=== PATIENT | female | born 1935 | race Caucasian/White ===

== ENCOUNTER → 2018-03-05 | Day surgery (SDC) | payer OTHER ==
[~2018-03-05] MED LIST: DOBUTamine/DEXTROSE 250 ML IV ONE
--- NOTE | 2018-03-18 17:07 | ECHO ---
[email or web address] [address] Main: [phone] Fax: Transthoracic Echocardiogram Name: MARY CORTEZ MR#: [id number] Study Date: 03/05/2018 Study Time: 11:22 AM Date of : 1935 Age: 82 year(s) Height: 167.6 cm (66 in.) Weight: 95.26 kg (210 lb.) BSA: 2.04 m2 Gender: Female Examination: DSE Indication: Dobutamine Stress Echo Image Quality: Contrast: Requested by: Mc Contreras BP: 144 mmHg/72 mmHg Heart Rate: Rhythm: Indication: Dobutamine Stress Echo Procedure Staff School Clerk: Grant Queen RDCS Reading Physician: Mc Contreras MD Requesting Provider: Conclusions: Stress echo consistent with severe aortic stenosis with significant increase in mean and peak gradient. Measurements: Chambers Valvular Assessment AV/MV Valvular Assessment TV/PV Normal Normal Normal Name Value Range Name Value Range Name Value Range LVOTd 1.9 cm 1.9 cm mm AV Vmax: 4.91 m/s (1 m/s-1.7 m/s) AV maxP mmHg ( - ) AV meanP mmHg ( - ) LVOT Vmax: 1.05 m/s (0.7 m/s-1.1 m/s) OK (Vmax): 0.6 cm2 ( - ) OK (VTI): 0.8 cm ( - ) Continued Measurements: Findings: Left Ventricle: Normal size left ventricle. Aortic Valve: Moderate aortic cusp calcification is present. Exam Comments: This is a doubatimine stress echo to evaluate the aortic valve gradients. The left ventricle is preserved with a normal ejection fraction. the baseline AV Vmax is 3.1 m/s with a mean PG of 23 mmHg and OK of .91 At 10 mc the Vmax is 3.6m/s with a mean PG of 28 mmHg. At 20 mc the AV Vmax was 4.1 m/s with a mean PG of 33 mmHg. At 30 mc the AV Vmax was 4.9 m/s with a mean PG of 50 mmHg and a follow up velocity of AV Vmax of 4.5 m/s and a mean PG of 44 mmHg. Patient: MARY CORTEZ Study Date: 03/05/2018 Page 1 of 2 11:22 AM Baseline EKG NSR with no ischemic changes with doubtamine infusion.. (No Signature Object) Patient: MARY CORTEZ Study Date: 03/05/2018 Page 2 of 2 11:22 AM [id number]
== END | disposition home or self-care (01) ==
LOC: FCATH 10:47 → EDSTATUS 11:30
PROVIDERS: ATTEND Internal Medicine Interventional Cardiology
DX: I35.0 Nonrheumatic aortic (valve) stenosis (principal); R53.83 Other fatigue
CPT/HCPCS: J1250

== ENCOUNTER → 2018-03-18 | Day surgery (SDC) | payer OTHER ==
[~2018-03-18] MED LIST changes: +ASPIRIN EC 325 MG TAB PO ONE; +ATROPINE SULFATE 1 MG/10 ML SYR IVP PRN; +CLOPIDOGREL BISULFATE 75 MG TAB ONE; +CLOPIDOGREL BISULFATE 75 MG TAB PO ONE; +DIAZEPAM 5 MG TAB ONE; +DIAZEPAM 5 MG TAB PO ONE; -DOBUTamine/DEXTROSE 250 ML IV ONE; +FAMOTIDINE 20 MG TAB ONE; +FAMOTIDINE 20 MG TAB PO ONE; +IOPAMIDOL (ISOVUE 370) 100 ML BTL IV ONE; +IOPAMIDOL (ISOVUE-370) 150 ML BTL IV ONE; +LIDOCAINE 1% 300 MG/30 ML SDV ONE; +MIDAZOLAM 2 MG/2 ML VIAL ONE; +NITROGLYCERIN 0.4 MG BTL SL PRN; +NS 1,000 ML IV ONE; +ONDANSETRON 4 MG/2 ML VIAL IVP PRN; +diphenhydrAMINE 25 MG CAP PO ONE; +fentaNYL 100 MCG/2 ML INJ ONE
--- NOTE | 2018-03-18 07:59 | PDPROPOC ---
Sedation Plan of Care Sedation Plan of Care: mental status noted, patient educated of risks, benefits , alternatives, patient can tolerate sedation ASA Classification: ASA 2 Planned drugs: fentanyl, midazolam Mallampati Score: Class 2 Mallampati Reference Image: Patient passed 3-3-2 rule?: Yes
--- NOTE | 2018-03-18 07:59 | PDHPUP ---
History & Physical Update H&P update statement: This history and physical update is based on an assessment of the patient which was completed after admission or registration (within 24 hours), but prior to the surgery/procedure. H&P update: H&P reviewed & patient examined, no change in patient's condition since H&P completed
[2018-03-18 08:08] LABS: PLATELET COUNT 215 10^3/uL (150-400)
[2018-03-18 08:16] LABS: INR 1.04 (0.83-1.16); PROTIME(PATIENT) 13.8 SEC (12.0-15.0)
--- NOTE | 2018-03-18 10:42 | CPIP ---
DATE OF PROCEDURE: 03/18/2018 INDICATION FOR PROCEDURE: Severe asymptomatic aortic stenosis pre-transcatheter aortic valve replace ment. PROCEDURE: 1. Left groin sheathogram. 2. 7-Faroese sheath left common femoral vein. 3. Bilateral selective coronary angiography. 4. Abdominal angiogram. 5. Right heart catheterization with [place]-Jona catheter. HISTORY: This is an 82-year-old female with history of severe symptomatic aortic stenosis. Patient has been seen by Dr. Cuevas and deemed to be a suitable candidate for TAVR. DESCRIPTION OF PROCEDURE: After informed consent was obtained, the patient was brought to [facility] where the left groin was prepped and draped in a sterile fashion. Using lidocaine, insertion of a 6-Faroese sheath in the left common femoral artery verified angiographically. A 7-Faroese sheath in left commo n vein. A [place]-Jona catheter was advanced. Wedge pressure was mean of 10, A-wave 13, V-wave 14. PA pressure systolic 53, diastolic 15, mean of 28. RV pressure systolic 54, diastolic 5, end of 12. RA pressur e mean of 6, A-wave of 12, V-wave of 7. Cardiac output was measured to be 5.2 by Terry with a cardiac index of 2.5. [place]-Jona catheter was then removed. A JL4 catheter was then advanced to the left coronary artery. Images of the left coronary artery revealed normal left main. Left circumflex artery gave off a serp iginous marginal 1 artery, normal marginal 2 artery, and terminating into an LPLS, which was appeared to be a codominant circulation. The LAD was a long vessel, which wrapped around the apex. The LAD gave a medium-sized diagonal artery in its midbody, which was healthy and free of disease. After these images were obtained, the JR4 catheter was removed. A JR4 catheter advanced to the right coronary artery. Images of the right coronary artery revealed normal os, prox, mid RCA, normal RPDA . This appeared to be a codominant circulation. The JR4 catheter was removed. Pigtail catheter is advanced to the descending aorta. Abdominal aorto gram obtained under digital subtraction imaging, which showed patent descending aorta, patent bilater al common, external, internal iliac arteries, patent bilateral common femoral artery. At this time, the pigtail catheter was removed. The 6-Faroese sheath and 7-Faroese sheath were removed with manual p ressure. Patient tolerated the procedure well with no complications. IMPRESSION: 1. Essentially normal coronary arteries. 2. Moderate pulmonary hypertension. PLAN: The patient will have her sheath discontinued and have bedrest for 3 hours time. The patient will be discharged home later today after her CT-A of the chest, abdomen, pelvis, and carotid ultraso und. Follow up in the office for evaluation for eventual TAVR. /[id number]/MODL
--- NOTE | 2018-03-18 16:40 | CPEKG ---
Test Reason : OPEN Blood Pressure : / mmHG Vent. Rate : 088 BPM Atrial Rate : 089 BPM P-R Int : 151 ms QRS Dur : 092 ms QT Int : 379 ms P-R-T Axes : 073 011 048 degrees QTc Int : 459 ms Sinus rhythm Confirmed by Nato Avila ([id number]) on 03/18/2018 4:40:04 PM Referred By: Confirmed By:Nato Avila
== END | disposition home or self-care (01) ==
LOC: FCATH 07:26
PROVIDERS: ATTEND Internal Medicine Cardiovascular Disease
DX: Z01.810 Encounter for preprocedural cardiovascular examination (principal); I35.0 Nonrheumatic aortic (valve) stenosis; I27.20 Pulmonary hypertension, unspecified; R93.1 Abnormal findings on diagnostic imaging of heart and coronary circulation; I65.22 Occlusion and stenosis of left carotid artery; I10 Essential (primary) hypertension; E03.9 Hypothyroidism, unspecified; Z79.82 Long term (current) use of aspirin; Z85.41 Personal history of malignant neoplasm of cervix uteri; Z96.653 Presence of artificial knee joint, bilateral; Z90.710 Acquired absence of both cervix and uterus; Z88.0 Allergy status to penicillin
CPT/HCPCS: J1644; J2250; J3010; Q9967

== ENCOUNTER 2018-03-25 06:19 | Inpatient (IN) | payer OTHER ==
[2018-03-25] MEDS ORDERED: NS 1,000 ML IV ONE (06:21)
--- NOTE | 2018-03-25 06:47 | PDPROPOC ---
Sedation Plan of Care Sedation Plan of Care: mental status noted, patient educated of risks, benefits , alternatives, patient can tolerate sedation ASA Classification: ASA 2 Planned drugs: other Mallampati Score: Class 3 Mallampati Reference Image: Patient passed 3-3-2 rule?: Yes
[2018-03-25] MEDS ORDERED: IOPAMIDOL (ISOVUE-370) 150 ML BTL IV ONE (06:52)
[2018-03-25] MEDS ORDERED: LIDOCAINE 1% 300 MG/30 ML SDV ONE ×2 (06:52→07:24)
--- NOTE | 2018-03-25 06:56 | PDANEPAE ---
ANE History of Present Illness here for TAVR ANE Past Medical History - Cardiovascular History Hx Hypertension: No Hx Arrhythmias: No Hx Chest Pain: No Hx Coronary Artery / Peripheral Vascular Disease: No Hx CHF / Valvular Disease: Yes Hx Palpitations: No - Pulmonary History Hx COPD: No Hx Asthma/Reactive Airway Disease: No Hx Sleep Apnea: No - Neurologic History Hx Cerebrovascular Accident: No Hx Seizures: No Hx Dementia: No - Endocrine History Hx Diabetes: No Hypothyroid: Yes Hyperthyroid: No - Renal History Hx Renal Disorders: No - Liver History Hx Hepatic Disorders: No ANE Review of Systems Review of systems is: negative Review of Systems: - Exercise capacity Exercise capacity: >=4 METS ANE Patient History - Allergies Allergies/Adverse Reactions: acetaminophen [From Percocet] Allergy (Verified 02/26/18 11:55) amoxicillin Allergy (Verified 03/25/18 06:48) Diarrhea oxycodone Allergy (Verified 02/26/18 11:55) - Home Medications Home medications: home medication list seen and reviewed Home Medications: ALPRAZolam [Xanax 0.5 MG (*)] 0.5 mg PO TID PRN 02/26/18 [Last Taken Unknown] Albuterol [Proventil Inhaler HFA (*)] 2 puffs IH Q6-8PRN PRN 02/26/18 [Last Taken 1 Day Ago ~03/24/18] C/E/Zn/Cu/OM3/DHA/EPA/LUT/ZEAX [Preservision Areds 2 Softgel] 2 each PO BID [Last Taken 1 Day Ago ~03/24/18] Ferrous Sulfate [Ferrous Sulf 325 MG (*)] 325 mg PO DAILY 02/26/18 [Last Taken 1 Day Ago ~03/24/18] Fluticasone Hfa 110 Mcg [Flovent 110 MCG Hfa MDI (*)] 2 puffs IH BID 02/26/18 [ Last Taken 1 Day Ago ~03/24/18] Folic Acid [Folic Acid 1 MG (*)] 1 mg PO DAILY 02/26/18 [Last Taken 1 Day Ago ~ 03/24/18] HYDROcodone/APAP 10/325 [Valders 10/325 (*)] 1 tab PO Q6-8PRN PRN 02/26/18 [Last Taken 1 Day Ago ~03/24/18] Herbals/Supplements -Info Only 1 ea PO DAILY 02/26/18 [Last Taken 1 Day Ago ~01/01] Hydrochlorothiazide [HCTZ (*)] 12.5 mg PO DAILY 02/26/18 [Last Taken 1 Day Ago ~ 03/24/18] Levothyroxine [Synthroid 50 mcg (*)] 50 mcg PO DAILY06 02/26/18 [Last Taken 1 Day Ago ~03/24/18] Methotrexate Sodium [Rheumatrex 2.5 mg (RX)] 10 mg PO TH 02/26/18 [Last Taken ] Metoprolol Succinate Xr [Toprol Xl 50 mg (*)] 50 mg PO DAILY18 02/26/18 [Last Taken 1 Day Ago ~03/24/18] Montelukast Sodium [Singulair 10 mg (*)] 10 mg PO DAILY 02/26/18 [Last Taken 1 Day Ago ~03/24/18] Pantoprazole Sodium [Protonix 40mg (*)] 40 mg PO DAILY 02/26/18 [Last Taken 1 Day Ago ~03/24/18] - NPO status NPO Status: no food or drink >8 hours - Smoking Hx Smoking Status: Never smoked ANE Labs/Vital Signs - Vital Signs Vital Signs: reviewed preoperatively; see RN documention for details Height: 167.64 cm Weight: 96.162 kg ANE Physical Exam - Airway Neck exam: FROM Mallampati Score: Class 2 Mouth exam: normal dental/mouth exam - Pulmonary Pulmonary: no respiratory distress - Cardiovascular Cardiovascular: regular rate and rhythym, systolic murmur - ASA Status ASA Status: III ANE Anesthesia Plan Anesthesia Plan: MAC Lines/Monitors: central line
[2018-03-25] MEDS ORDERED: ceFAZolin 2 GM/DEXTROSE 100 ML IV ONE (07:00)
[2018-03-25] MEDS ORDERED: fentaNYL 100 MCG/2 ML INJ ONE (07:12)
[2018-03-25] MEDS ORDERED: MIDAZOLAM 2 MG/2 ML VIAL ONE (07:13)
[2018-03-25] MEDS ORDERED: PROPOFOL/EMULSION 500 MG/50 ML BOTTLE IV ONE (07:14)
[2018-03-25] MEDS ORDERED: ePHEDrine SULFATE 25 MG/5 ML SYR ONE (07:17)
[2018-03-25] MEDS ORDERED: PHENYLEPHRINE HCL 100 MCG/ML SYR ONE (07:17)
[2018-03-25] MEDS ORDERED: DEXMEDETOMIDINE HCL 400 MCG in NS 100 ML IV ONE (07:30)
[2018-03-25] MEDS ORDERED: PROTAMINE SULFATE 50 MG/5 ML VIAL IVP ONE (08:42)
[2018-03-25] MEDS ORDERED: hydrALAZINE 20 MG/ML VIAL IVP PRN (08:51)
[2018-03-25] MEDS ORDERED: ATROPINE SULFATE 1 MG/10 ML SYR IVP PRN (08:51)
--- NOTE | 2018-03-25 13:18 | PDMN ---
Medical Necessity Medical necessity: 82 yo w/ MCG S320 Aortic Valve Replacement, Transcatheter ( TAVR), ANJALI only
[2018-03-25] MEDS ORDERED: ASPIRIN 81 MG CHEWABLE TAB PO SCH (13:30)
--- NOTE | 2018-03-25 13:37 | PDCONSULT ---
Ladle Patcher Note: [facility] Note Demographics Consult Type: Acute Stroke First Name: Juanjo Last Name: Sammi Date of : 1935 Age: 82 Gender: Female Time of initial page (): 03/25/2018 12:58 Time of return call (): 03/25/2018 12:58 Time Ready to Initiate Telemed Consult (): 03/25/2018 12:58 HPI Chief Complaint: dysarthria, facial droop Additional History (Free Text): This is a pleasant 82 yo W who we have been asked to see as part of a stroke alert. Patient is status post TAVR procedure this morning. She was doing well and was just cleared to get up from bed around noon. Shortly thereafter patient started complaining of acute onset of double vision. Her nurse also noticed that the left side of her face was drooping. Stroke alert was called. [facility]-- Past Surgical History: TAVR today Exam Vitals: vital signs reviewed Mental Status: awake, alert + oriented x 3, follows commands Language: no aphasia, mild dysarthria Cranial Nerves: extra ocular movements intact, normal facial sensation, Subjective double vision. Nystagmus with EOM, but no gross dysconjugate gaze. Patient said the left part of the screen appeared dark, but formal visual field testing did not show any deficits. She had L facial weakness. Motor: normal strength, normal bulk, no drift Sensory: normal sensation Cerebellar: normal cerebellar NIHSS Time ([place] ): 03/25/2018 12:53 LOC 1a: 0 = Alert; keenly responsive LOC 1b: 0 = Answers both questions correctly LOC Commands: 0 = Performs both tasks correctly Best Gaze: 0 = Normal Visual: 1 = Partial hemianopia Facial Palsy: 2 = Partial paralysis (total or near-total paralysis of lower face ) Motor Arm L: 0 = No drift; limb holds 90 (or 45) degrees for full 10 seconds Motor Arm R: 0 = No drift; limb holds 90 (or 45) degrees for full 10 seconds Motor Leg L: 0 = No drift; leg holds 30-degree position for full 5 seconds Motor Leg R: 0 = No drift; leg holds 30-degree position for full 5 seconds Limb Ataxia: 0 = Absent Sensory: 0 = Normal; no sensory loss Best Language: 0 = No aphasia; normal Dysarthria: 1 = Vhvn-[id number]-[id number] dysarthria; patient slurs at least some words Extinction + Inattention: 0 = No abnormality NIHSS: [address]: no bleed Assessment . Acute Ischemic Stroke Plan Lytic/Intervention: NOT IV or IA candidate, S/P TAVR so risk outweighs any benefit. tPA Exclusion (< 3hr window): Mild or improving symptoms Additional Recommendations: Patient just had contrast load for procedure, so hesitant to do CTA head and neck. If there is any worsening of neuro status, recommend CTA head and neck stat to look for LVO. Allow for permissive HTN, to what is permissible post TAVR. NPO until formal swallow eval. Start antiplatelet per cardiology recommendation. Discussed with / El. Disposition: continue admission Logistics Telemedicine: Interactive 2 way audio and visual telecommunication technology was utilized during this visit. Provider Location: [place]
[2018-03-25] MEDS: NS 1,000 ML IV SCH ×2 (13:40→20:44)
[2018-03-25 13:43] LABS: PLATELET COUNT 184 10^3/uL (150-400)
--- NOTE | 2018-03-25 16:10 | POSTANESTH ---
Post Anesthetic Evaluation Cardiovascular Status: Normal, Stable Respiratory Status: Normal, Stable Level of Consciousness/Mental Status: Can Participate in Eval Pain Control: Adequate, Prn Tx Ordered Nausea/Vomiting Control: Adequate, Prn Tx Ordered Complications Possibly Related to Anesthesia: None Noted
--- NOTE | 2018-03-25 16:15 | CPEKG ---
Test Reason : OPEN Blood Pressure : / mmHG Vent. Rate : 069 BPM Atrial Rate : 074 BPM P-R Int : 205 ms QRS Dur : 142 ms QT Int : 482 ms P-R-T Axes : 076 -66 090 degrees QTc Int : 517 ms Sinus arrhythmia Left bundle branch block Confirmed by Paresh Pope ([id number]) on 03/25/2018 4:14:51 PM Referred By: Confirmed By:Paresh Pope
--- NOTE | 2018-03-25 17:22 | CPIP ---
DATE OF PROCEDURE: 03/25/2018 INDICATION FOR PROCEDURE: Severe symptomatic aortic stenosis. CO-SURGEONS: Dr. Paul Cuevas, Dr. Anabela Baron, Dr. Eliot Burch. PROCEDURES: 1. Nonselective right groin sheathogram. 2. Nonselective left groin sheathogram. 3. Upsizing right groin to 16-Albanian sheath. 4. double Perclose placement. 5. left heart catheterization. 6. Aortic root angiography. 7. Placement of Medtronic CoreValve Evolut Pro 29 mm valve by the transfemoral route. HISTORY: Briefly, this is an 82-year-old female with history of severe symptomatic aortic stenosis. The patient had been worked up by Dr. Contreras, as an outpatient and had dobutamine echo, which show ed severe increasing gradient across the aortic valve with dobutamine infusion. The patient had norm al and normal coronary angiography. Given the patient's age, patient was conse nted for a transfemoral TAVR after [address] surgeons deemed her a suitable candidate for TAVR. DESCRIPTION OF PROCEDURE: After informed consent was obtained, the patient was brought to [facility] where for bilateral groins was prepped and draped in sterile fashion. The patient was sedated with MAC ane sthesia. A right internal jugular line was placed with a temporary pacemaker placed right into the R V. A 6-Albanian sheath placed in the right femoral artery, verified angiographically. A 6-Albanian nolan th in the left common femoral artery, verified angiographically. A 6-Albanian in the left common an 8-Albanian sheath. A 6-Albanian sheath in the right groin was upsized after double Perclose michelle cement, 16-Albanian sheath over a stiff Lunderquist wire. Patient is administered a total of 11,000 un its of heparin IV. Valve was crossed and AL1 catheter was exchanged wire, switched out fo r a pigtail catheter, switched out for a Confida wire. Placement of Medtronic CoreValve Evolut Pro 2 9 mm valve was then performed and this is then deployed successfully. After deployment, there is on echo, no perivalvular leak noted with excellent valvular function. Wire was pulled back. The sheath was then pulled out and closed with the double Percloses. The left groin was closed an 8-Albanian Ang io-Seal. Patient tolerated the procedure well with no complications. IMPRESSION: Successful placement of Medtronic CoreValve Evolut Pro 29 mm valve by the transfemoral r oute. PLAN: The patient will be admitted to PCU. Anticipate discharge within next 24 to 48 hours. /[id number]/MODL
--- NOTE | 2018-03-25 19:03 | GCON ---
NEUROLOGY CONSULT DATE OF CONSULTATION: 03/25/2018 REFERRING PHYSICIAN: Rojas Gallegos MD CHIEF COMPLAINT: Acute neurologic changes. HISTORY OF PRESENT ILLNESS: The patient is a very pleasant 82-year-old lady who had a TAVR procedure earlier today. Apparently, she was doing well and was cleared to get up from bed around noon when she suddenly complained of acute onset double vision, and nursing staff noticed left-sided facial droop. Stroke alert was called. She was seen by Dr. Hill of [facility]. It was noted that she had rapidly improving symptoms with an NIH stroke score of 4. Dr. Hill did not recommend IV or IA thrombolysis. Because she just received a large bolus of contrast with her TAVR procedure, Dr. Hill was hesitant to recommend a CTA of the head and neck. However, she did recommend to proceed with CTA of the head and neck stat if there is worsening neurologic status to look for a large vessel occlusion. She is on dual antiplatelet therapy and now doing well. Indeed, her 2 daughters feel that she has improved perhaps up to 80% since the initial deficit with fluids. REVIEW OF SYSTEMS: A 10-point review of systems was done only pertinent to the HPI. For past medical history, social history, family history, home medications, and allergies, see Dr. Gallegos's H and P. PHYSICAL EXAMINATION: VITAL SIGNS: Blood pressure is 115/61, respirations 14, heart rate 75. GENERAL: In no acute distress. Very pleasant. NEUROLOGIC: Higher mental functions: She is awake and alert, lucid. No aphasia. Cranial nerve exam: She has a left-sided facial weakness in an upper motor neuron distribution. On motor exam, she has left hemiparesis in the arm and leg. IMPRESSION/PLAN: 1. Status post transcatheter aortic valve replacement procedure. 2. Stroke. The patient's clinical history and neurologic exam are consistent with a post- procedure cerebral infarct in the right hemisphere. Discussed at length with the patient. Certainly, an embolic event is a known risk with these intravascular procedures. We reviewed the [facility] acute stroke alert note and their recommendations. We will proceed with this recommendation course. Specifically , the patient is on antiplatelet therapy, fluids, and can be on statin therapy as well going forward. If there is any acute neurologic change, a repeat inpatient stroke alert will be called, along with simultaneous STAT CTA of the head and neck to look for any large vessel occlusion. If she does have large vessel occlusion, then [facility] can make recommendations accordingly, including transfer for intravascular procedure. We had a long discussion regarding doing an MRI brain. The patient declined MRI brain testing now as it would likely not alter management. She also stated should would only want CTA head/neck if only absolutely necessary. She agreed to the above plan (with CTAs) if there is any change in her neurologic status. I recommend PT, OT, and speech therapy consults to help with inpatient and ongoing therapy, along with this physician. She will need a repeat swallow study from what I understand from nursing tomorrow. No further recommendations now. We will continue to follow the patient as needed. Please do not hesitate to call if there are any questions or changes in neurologic status with this very pleasant patient. Seventy total minutes floor time today reviewing imaging, records, [facility] documentation, and over 50% in direct counseling and coordination of care, along with speaking to Dr. Gallegos. /[id number]/MODL SHABBIR
[2018-03-26] MEDS: NS 1,000 ML IV SCH (04:43)
[2018-03-26 05:07] LABS: PLATELET COUNT 170 10^3/uL (150-400)
[2018-03-26 06:40] LABS: INR 1.14 (0.83-1.16); PROTIME(PATIENT) 14.8 SEC (12.0-15.0)
[2018-03-26] MEDS ORDERED: METOPROLOL TARTRATE 5 MG/5 ML INJ ONE (07:18)
[2018-03-26] MEDS: METOPROLOL TARTRATE 5 MG/5 ML INJ IVP SCH ×5 (07:47→23:27)
--- NOTE | 2018-03-26 09:52 | NEUROPROG ---
Assessment: 1. stroke 2. s/p TAVR The patient has improved further since yesterday. In her left lower extremity there has been a 80-90% improvement and power. Going forward, we will continue to follow the previously outlined plan: If she has any change in neurologic status we will call for a inpatient stroke alert with stat CTA head and neck and [facility] consultation. Otherwise, anti-platelet therapy and statin therapy if indicated going forward. PT OT and speech therapy have been consulted. No further recommendations now. We will sign off and follow up as needed. Please do not hesitate to call for any questions or changes in neurologic status with this patient. Subjective: Further improvement of left-sided weakness Objective: Vital Signs Temp Pulse Resp BP Pulse Ox 36.7 C 98 18 145/86 H 96 03/26/18 07:41 03/26/18 08:46 03/26/18 07:41 03/26/18 08:46 03/26/18 07:41 Laboratory Results 03/26/18 04:45 03/26/18 04:45 03/25/18 03/26/18 03/27/18 05:59 05:59 05:59 Intake Total 1672 Output Total 800 Balance 872 PT 14.8 SEC (12.0-15.0) 03/26/18 05:45 INR 1.14 (0.83-1.16) 03/26/18 05:45 Both upper extremities are 5/5 Left lower extremities 4/5 (hip extensors) right lower extremities 5/5 35 total minutes floor time; over 50% direct counseling and coordination of care. Allergies/Adverse Reactions: acetaminophen [From Percocet] Allergy (Verified 02/26/18 11:55) amoxicillin Allergy (Verified 03/25/18 06:48) Diarrhea oxycodone Allergy (Verified 03/25/18 09:35) Other-Enter Comments
--- NOTE | 2018-03-26 09:56 | PDCARPN ---
Cardiology Progress Note Chief Complaint: SOB Assessment/Plan: Assessment: s/p TAVR CVA HTN Plan: 03/26/18 09:52 Appreciate neurology input Swallow study today IV lopressor for BP/HR control check echo start plavix/ASA once cleared for swallow OOB with PT/rehab Subjective: tired Reviewed/Discussed With: multidisciplinary team Time Spent with Patient: greater than 25 minutes Time Spent with Patient: Greater than 25 minutes spent on this patients care, greater than 50% of time spent counseling, educating, and coordinating care regarding the above mentioned plan. Objective: Vital Signs (8 Hrs) Temp Pulse Resp BP Pulse Ox 03/26/18 08:46 98 145/86 H 03/26/18 07:47 84 127/50 H 03/26/18 07:41 36.7 C 86 18 131/55 H 96 03/26/18 04:00 37.7 C 106 H 16 139/65 H 95 Intake/Output (24 Hrs) 03/25/18 03/26/18 03/27/18 05:59 05:59 05:59 Intake Total 1672 Output Total 800 Balance 872 Intake: Oral (ml) 0 IV Infused (ml) 1672 Ns 1,000 ml @ 100 mls/hr 1672 IV CONT YESICA Rx#: [id number] Output: Urine (ml) 800 Bedside Commode 100 Catheter 450 Toilet 250 Other: Weight 96.162 kg Number of Voids Bedside Commode 1 Toilet 2 Post Void Residual Scan Volume (ml) Bedside Commode 385 Result Diagrams: 03/26/18 04:45 03/26/18 04:45 - Physical Exam Constitutional: no apparent distress Eyes: PERRL Ears, Nose, Mouth, Throat: moist mucous membranes Cardiovascular: regular rate and rhythm Peripheral Pulses: 1+: femoral (R), femoral (L) Respiratory: clear to auscultate bilat Gastrointestinal: normoactive bowel sounds Genitourinary: no suprapubic tenderness Skin: no rashes Musculoskeletal: no muscular tenderness Neurologic: AAOx3 Psychiatric: cooperative ICD10 Worksheet Patient Problems: Problems Problem Status Onset Aortic stenosis Acute Aortic stenosis Acute Aortic stenosis, severe Acute CVA (cerebral vascular accident) Acute SOB (shortness of breath) Acute - ICD10 Problem Qualifiers (1) Aortic stenosis Qualifiers: Cardiac valve disease etiology: nonrheumatic Qualified Code(s): I35.0 - Nonrheumatic aortic (valve) stenosis (2) Aortic stenosis, severe
--- NOTE | 2018-03-26 10:36 | ECHO ---
[email or web address] [address] [address] Main: [phone] Fax: Transthoracic Echocardiogram Name: MARY CORTEZ MR#: [id number] Study Date: 03/26/2018 Study Time: 08:30 AM Date of : 1935 Age: 82 year(s) Height: 167.6 cm (66 in.) Weight: 96.16 kg (212 lb.) BSA: 2.05 m2 Gender: Female Examination: Echo Indication: Post TAVR Image Quality: Contrast: Requested by: Rojas Gallegos BP: 145 mmHg/56 mmHg Heart Rate: Rhythm: Tachycardia Indication: Post TAVR Procedure Staff Multiple Needle Stitcher: Grant Queen RDCS Reading Physician: Mc Contreras MD Requesting Provider: Conclusions: No pericardial effusion. Ejection fraction is normal at 60%. There are no new regional wall motion abnormalities. There is a transcutaneous aortic valve replacement. There is no significant aortic insufficiency. Measurements: Chambers Valvular Assessment AV/MV Valvular Assessment TV/PV Normal Normal Normal Name Value Range Name Value Range Name Value Range IVSd (2D): 0.8 cm (0.6 cm-1.1 AV Vmax: 2.00 m/s (1 m/s-1.7 TR Vmax: 2.77 mm/s ( - ) cm) m/s) TR PGmax: 31 mmHg ( - ) LVDd (2D): 4.4 cm (3.9 cm-5.3 AV maxP mmHg ( - ) syst. PAP: 36 mmHg ( - ) cm) AV meanP mmHg ( - ) PV Vmax: 1.19 m/s (0.6 m/s-0.9 LVDs (2D): 3.0 cm (2.1 cm-4 LVOT Vmax: 1.31 m/s (0.7 m/s-1.1 m/s) cm) m/s) PV PGmax: 6 mmHg ( - ) LVPWd (2D): 0.8 cm ( - ) OK (Vmax): 2.3 cm2 ( - ) LVOTd 2.1 cm 2.1 cm mm OK (VTI): 2.5 cm ( - ) LVEF (2D): 60 (>=54 %) MV E Vmax: 1.39 m/s ( - ) Continued Measurements: Chambers Valvular Assessment TV/PV Name Value Name Value LADs Lon.6 cm CVP (est.): 5 mmHg LA Area: 19.3 cm2 LA Volume: 66 ml LA Volume Index: 32.2 ml/m2 Findings: Left Ventricle: Patient: MARY CORTEZ Study Date: 03/26/2018 Page 1 of 2 08:30 AM Normal size left ventricle. No LV hypertrophy. Normal global systolic LV function. EF is 60 %. No regional wall motion abnormality. Diastolic dysfunction is present. . Right Ventricle: Normal size right ventricle. Normal RV function. Left Atrium: The left atrium is normal in size. Right Atrium: The right atrium is normal in size. Mitral Valve: The mitral valve is normal in appearance. Mild mitral valve regurgitation is present. Aortic Valve: There is a Corevalve in the aortic position. There is no post AI or compromise of the Mitral Valve. There is preserved LV function. No evidence of a pericardial effusion. . Tricuspid Valve: The tricuspid valve appears normal. Pulmonic Valve: The pulmonic valve is normal in appearance and function. Aorta: The aorta is normal. Pericardium: No pericardial effusion. (No Signature Object) Patient: MARY CORTEZ Study Date: 03/26/2018 Page 2 of 2 08:30 AM [id number]
[2018-03-26] MEDS ORDERED: METOPROLOL TARTRATE 5 MG/5 ML INJ IVP SCH (12:00)
[2018-03-26] MEDS ORDERED: D5W 1/2 NS 1,000 ML IV SCH (16:00)
--- NOTE | 2018-03-26 20:28 | ECHO ---
[email or web address] [address] [address] Main: [phone] Fax: Transthoracic Echocardiogram Name: MARY CORTEZ MR#: [id number] Study Date: 03/25/2018 Study Time: 07:31 AM Date of : 1935 Age: 82 year(s) Height: 167.6 cm (66 in.) Weight: 95.26 kg (210 lb.) BSA: 2.04 m2 Gender: Female Examination: Limited Echo Indication: TAVR Image Quality: Contrast: Requested by: Rojas Gallegos BP: 140 mmHg/72 mmHg Heart Rate: Rhythm: Indication: TAVR Procedure Staff Shirt Turner: Grant Queen RDCS Reading Physician: Anabela Baron MD Requesting Provider: Rojas Gallegos Conclusions: Normal global systolic LV function. Successful implatation of corevalve in the aortic valve position. There is no evidence of any significant aortic insufficiency. There is no compromise of the mitral valve. Preserved LV systolic function with no evidence of a pericardial effusion. The TAVR valve has a Vmax of 1.4m/s with a Mean PG of 4 mmHg.. Measurements: Chambers Valvular Assessment AV/MV Valvular Assessment TV/PV Normal Normal Normal Name Value Range Name Value Range Name Value Range LVOTd 2.0 cm 2.0 cm mm AV Vmax: 1.45 m/s (1 m/s-1.7 m/s) AV maxP mmHg ( - ) AV meanP mmHg ( - ) LVOT Vmax: 1.04 m/s (0.7 m/s-1.1 m/s) OK (Vmax): 2.3 cm2 ( - ) OK (VTI): 0.9 cm ( - ) Continued Measurements: Findings: Left Ventricle: Normal global systolic LV function. Exam Comments: Successful implatation of corevalve in the aortic valve position. There is no evidence of any significant aortic insufficiency. There is no compromise of the mitral valve. Preserved LV systolic function with no evidence of a pericardial effusion. The TAVR valve has a Vmax of 1.4m/s with a Patient: MARY CORTEZ Study Date: 03/25/2018 Page 1 of 2 07:31 AM Mean PG of 4 mmHg.. (No Signature Object) Patient: MARY CORTEZ Study Date: 03/25/2018 Page 2 of 2 07:31 AM [id number]
--- NOTE | 2018-03-26 21:26 | ASMTCMCOM ---
CM Note CM Note Notes: 82yo female admitted for Aortic stenosis. She has a Hx of Cellulitis of L LE, HTN, Hypothyroid, OA, Cervical neoplasm. Patient to have a TAVR procedure. Her daughter is her MPOA. Therapies to eval. May not have discharge needs. Date Signed: 03/26/2018 09:50 AM Electronically Signed By:Sandra Riley LCSW
--- NOTE | 2018-03-26 22:17 | GCON ---
CRITICAL-CARE CONSULTATION DATE OF CONSULTATION: 03/26/2018 HISTORY OF PRESENT ILLNESS: This patient is an 82-year-old female with known moderate aortic stenosi s who complained of ongoing issues of fatigue and exertional dyspnea, so underwent a dobutamine stres s echo. This showed a significant increase in her aortic valve gradient and she was subsequently rec ommended for a transcutaneous aortic valve replacement. She subsequently met with both olman Young s well as Dr. Gil in seeking a second opinion about this and decided to proceed. The procedure occ urred yesterday and the procedure, itself, was without complications; however, shortly afterwards, th e patient experienced double vision, as well as a left facial droop and left hemiparesis. A stroke a lert was called, Telemedicine was involved, but because of the recent procedure, tPA was contraindica santino. She was subsequently followed by Neurology as well. She had a substantial improvement in sympt oms as much as 80% in the few hours after the procedure and continues to show improvement today. She denies any previous stroke history and had a carotid ultrasound, as well as CT angiograms and left a nd right heart catheterization prior to, but otherwise had no other risk factors. REVIEW OF SYSTEMS: Otherwise negative. PAST MEDICAL HISTORY: Includes: 1. Remote cervical cancer. 2. Hypertension. 3. Lower extremity cellulitis. 4. Hypothyroid. 5. Osteoarthritis. 6. Chronic sinus disease. 7. Moderate aortic stenosis and mild pulmonary hypertension on right heart catheterization with a me an pressure of 28. PAST SURGICAL HISTORY: Includes ankle surgery, hysterectomy, bilateral total knee arthroplasties. SOCIAL HISTORY: She has remote history of smoking tobacco, but otherwise lives independently. FAMILY HISTORY: Noncontributory her. MEDICATIONS: At this time, include aspirin, which she got yesterday, not today, clonidine, hydralazi ne, metoprolol, morphine, normal saline. EXAM: VITAL SIGNS: She is afebrile. Her blood pressure is 141/84, heart rate of 80, oxygen saturat ion 100% on 2 L with a rate of 14. GENERAL: She is a very pleasant woman who was in no apparent dis tress and able to speak in full sentences without using accessory muscles for breathing. Alert and o riented x3. HEENT: She had a slight facial droop on the left, which was difficult to see without a smile. Otherwise, pupils are equally round and reactive to light. Nonicteric and noninjected. Muco us membranes are moist without erythema or exudate. NECK: Supple without adenopathy or jugular vein distention. LUNGS: Breath sounds were clear to auscultation bilaterally without wheezes rubs or ra les. HEART: Regular rate and rhythm. ABDOMEN: Soft, nontender, nondistended without hepatosplenom egaly. EXTREMITIES: No clubbing, cyanosis, or edema. NEUROLOGIC: She had 5/5 strength throughout and other than the left lower extremity, which might have been slightly weaker. OBJECTIVE DATA: Includes a head CT which showed no significant pathology. Her CBC today is normal a s is her basic metabolic panel. INR is 1.14. ASSESSMENT/PLAN: 1. Aortic stenosis, status post transcatheter aortic valve replacement, which appears to be quite villa ccessful. 2. Stroke, presumably related to the procedure since embolic phenomenon are a risk factor involved. She appears to be progressing quite well. I had a 30 minute discussion with the patient, as well as her 2 daughters in detail today talking about their stroke and what it means, as well as the transca theter aortic valve replacement. My expectation I told them was that she should return to her pre-ho spital level of functioning and probably better since the valve surgery. I cannot predict exactly ho w she will recover from her stroke, but she is making great progress already and her ultimate disposi tion will depend on her level of functioning at the time of discharge. /[id number]/MODL
[2018-03-27] MEDS: METOPROLOL TARTRATE 5 MG/5 ML INJ IVP SCH (06:00)
[2018-03-27 06:32] LABS: PLATELET COUNT 150 10^3/uL (150-400)
--- NOTE | 2018-03-27 06:40 | PDCARPN ---
Cardiology Progress Note Chief Complaint: SOB Assessment/Plan: Assessment: s/p TAVR CVA HTN Plan: 03/26/18 09:52 Appreciate neurology input Swallow study today IV lopressor for BP/HR control check echo start plavix/ASA once cleared for swallow OOB with PT/rehab 03/27/18 06:38 doing better Improved neuro status OOB Speech eval/swallow test May need feeding tube today if swallowing not improved Subjective: feeling better Reviewed/Discussed With: multidisciplinary team Time Spent with Patient: greater than 25 minutes Time Spent with Patient: Greater than 25 minutes spent on this patients care, greater than 50% of time spent counseling, educating, and coordinating care regarding the above mentioned plan. Objective: Vital Signs (8 Hrs) Temp Pulse Resp BP Pulse Ox 03/27/18 06:00 82 134/54 H 03/27/18 04:00 79 22 H 147/60 H 93 03/26/18 23:22 37.3 C 101 H 20 144/72 H 96 Intake/Output (24 Hrs) 03/26/18 03/27/18 03/28/18 05:59 05:59 05:59 Intake Total 1672 1560 Output Total 800 940 Balance 872 620 Intake: Oral (ml) 0 IV Intake (ml) 990 IV Infused (ml) 1672 570 D5w 1/2 Ns 1,000 ml @ 50 570 mls/hr IV CONT YESICA Rx#: [id number] Ns 1,000 ml @ 100 mls/hr 1672 IV CONT YESICA Rx#: [id number] Output: Urine (ml) 800 940 Bedside Commode 100 Catheter 450 740 Toilet 250 200 Other: Weight 96.162 kg Number of Voids Bedside Commode 1 Catheter 4 Toilet 2 1 Post Void Residual Scan Volume (ml) Bedside Commode 385 Result Diagrams: 03/27/18 06:00 03/26/18 04:45 - Physical Exam Constitutional: no apparent distress Eyes: PERRL Ears, Nose, Mouth, Throat: moist mucous membranes Cardiovascular: regular rate and rhythm Peripheral Pulses: 1+: femoral (R), femoral (L) Respiratory: clear to auscultate bilat Gastrointestinal: normoactive bowel sounds Genitourinary: no suprapubic tenderness Skin: no rashes Musculoskeletal: no muscular tenderness Neurologic: AAOx3 Psychiatric: cooperative ICD10 Worksheet Patient Problems: Problems Problem Status Onset Aortic stenosis Acute Aortic stenosis Acute Aortic stenosis, severe Acute CVA (cerebral vascular accident) Acute SOB (shortness of breath) Acute - ICD10 Problem Qualifiers (1) Aortic stenosis Qualifiers: Cardiac valve disease etiology: nonrheumatic Qualified Code(s): I35.0 - Nonrheumatic aortic (valve) stenosis (2) Aortic stenosis, severe
[2018-03-27 06:42] LABS: INR 1.19 (0.83-1.16); PROTIME(PATIENT) 15.3 SEC (12.0-15.0)
[2018-03-27] MEDS: KETOROLAC 15 MG/1 ML SDV IVP PRN ×2 (08:09→21:06)
[2018-03-27] MEDS ORDERED: HYDROCODONE/APAP 10/325 TAB PO PRN (10:28)
[2018-03-27] MEDS: CLOPIDOGREL BISULFATE 75 MG TAB PO SCH (11:20)
[2018-03-27] MEDS: ASPIRIN 81 MG CHEWABLE TAB PO SCH (11:20)
--- NOTE | 2018-03-27 14:33 | ASMTCMCOM ---
CM Note CM Note Notes: Speech, PT and OT are all recommending home health for the patient. Spoke with Juanjo and she agrees with the recommendations. A referral was sent to [facility] and they can accept the patient. Transfer of care summary will need to include home health orders. Patient most likely to discharge tomorrow if she continues to do well post op. CM will follow. Date Signed: 03/27/2018 02:33 PM Electronically Signed By:Quin Romo LCSW
--- NOTE | 2018-03-27 15:49 | PDINTPN ---
Methods Examiner Progress Note Assessment/Plan: 82 F admitted for TAVR for which was complicated by acute CVA manifested as double vision, left facial droop and LUE/LLE weakness. A stroke alert was called at the onset of symptoms, but she was not a TPA candidate. However, her symptoms rapidly improved without specific intervention, though full protocol was followed. * s/p TAVR- post procedure echo looks good and anticipate improved chronic fatigue and performance status * CVA post procedure with rapid recovery- started on asa and plavix * HTN- well controlled. * * anticipate dc home in am Subjective: continues to improve Objective: Vital Signs Temp Pulse Resp BP Pulse Ox 36.7 C 74 16 138/61 H 96 03/27/18 12:00 03/27/18 12:00 03/27/18 12:00 03/27/18 12:00 03/27/18 12:00 Laboratory Results 03/27/18 06:00 03/26/18 04:45 03/26/18 03/27/18 03/28/18 05:59 05:59 05:59 Intake Total 1672 1560 Output Total 800 940 Balance 872 620 PT 15.3 SEC (12.0-15.0) H 03/27/18 06:00 INR 1.19 (0.83-1.16) H 03/27/18 06:00 Physical Exam - Physical Exam General Appearance: WD/WN, alert, no apparent distress EENT: PERRL/EOMI, No scleral icterus (R), No scleral icterus (L) Neck: full range of motion, supple, No lymphadenopathy (R), No lymphadenopathy ( L) Respiratory: lungs clear, normal breath sounds, No respiratory distress, No accessory muscle use Cardiac/Chest: regular rate, rhythm, No edema Abdomen: non-tender, soft, No distended Skin: normal color, warm/dry, No cyanosis Lymphatic: no adenopathy Extremities: No pedal edema Neuro/Psych: no motor/sensory deficits, alert, normal mood/affect, oriented x 3 , abnormal cerebellar tests, No abnormal machine heel sprayer II-XII ICD10 Worksheet Patient Problems: Problems Problem Status Onset Aortic stenosis Acute Aortic stenosis Acute Aortic stenosis, severe Acute CVA (cerebral vascular accident) Acute SOB (shortness of breath) Acute
[2018-03-27] MEDS ORDERED: METOPROLOL SUCCINATE XR 50 MG TAB PO SCH (18:00)
[2018-03-27] MEDS: FLUTICASONE HFA 110 MCG MDI IH SCH (20:23)
[2018-03-27] MEDS: PRESERVISION AREDS2 FORMULA EYE VIT 1 EACH PO SCH (21:06)
[2018-03-28] MEDS ORDERED: LEVOTHYROXINE 50 MCG TAB PO SCH (06:00)
--- NOTE | 2018-03-28 07:37 | PDCARPN ---
Cardiology Progress Note Chief Complaint: SOB Assessment/Plan: Assessment: s/p TAVR CVA HTN Plan: 03/26/18 09:52 Appreciate neurology input Swallow study today IV lopressor for BP/HR control check echo start plavix/ASA once cleared for swallow OOB with PT/rehab 03/27/18 06:38 doing better Improved neuro status OOB Speech eval/swallow test May need feeding tube today if swallowing not improved 03/28/18 07:36 doing very well swallowing OOB d/c home today f/u next week Subjective: doing well Reviewed/Discussed With: multidisciplinary team Time Spent with Patient: greater than 25 minutes Time Spent with Patient: Greater than 25 minutes spent on this patients care, greater than 50% of time spent counseling, educating, and coordinating care regarding the above mentioned plan. Objective: Vital Signs (8 Hrs) Temp Pulse Resp BP Pulse Ox 03/28/18 03:57 36.8 C 95 20 147/65 H 94 03/28/18 00:00 36.5 C 81 21 H 159/73 H 92 Intake/Output (24 Hrs) 03/27/18 03/28/18 03/29/18 05:59 05:59 05:59 Intake Total 1560 1050 Output Total 940 Balance 620 1050 Intake: Oral (ml) 1050 IV Intake (ml) 990 IV Infused (ml) 570 D5w 1/2 Ns 1,000 ml @ 50 570 mls/hr IV CONT YESICA Rx#: [id number] Output: Urine (ml) 940 Catheter 740 Toilet 200 Other: Intake Quantity Yes Sufficient Number of Voids Catheter 4 Toilet 1 1 Number of Stools Toilet 1 Post Void Residual Scan Volume (ml) Bedside Commode 385 Result Diagrams: 03/27/18 06:00 03/26/18 04:45 - Physical Exam Constitutional: healthy appearing Eyes: PERRL Ears, Nose, Mouth, Throat: moist mucous membranes Cardiovascular: regular rate and rhythm Peripheral Pulses: 1+: femoral (R), femoral (L) Respiratory: clear to auscultate bilat Gastrointestinal: normoactive bowel sounds Genitourinary: no suprapubic tenderness Skin: no rashes Musculoskeletal: no muscular tenderness Neurologic: AAOx3 Psychiatric: cooperative, interactive ICD10 Worksheet Patient Problems: Problems Problem Status Onset Aortic stenosis Acute Aortic stenosis Acute Aortic stenosis, severe Acute CVA (cerebral vascular accident) Acute SOB (shortness of breath) Acute - ICD10 Problem Qualifiers (1) Aortic stenosis Qualifiers: Cardiac valve disease etiology: nonrheumatic Qualified Code(s): I35.0 - Nonrheumatic aortic (valve) stenosis (2) Aortic stenosis, severe
[2018-03-28 07:41] VITALS: BP 159/64
--- NOTE | 2018-03-28 08:15 | GDS ---
DISCHARGE DIAGNOSES: Transcatheter aortic valve replacement/cerebrovascular accident. HOSPITAL COURSE: This is an 82-year-old female who had a history of severe symptomatic aortic stenos is. The patient was seen by 2 CT surgeons who deemed the patient to be a suitable candidate for sparks sfemoral TAVR. The patient underwent successful transfemoral TAVR with Medtronic CoreValve Evolut Pr o 29 mm valve. Approximately 5 hours after her procedure after she had been ambulating and was neuro logically intact, the patient had a sudden onset of left facial droop, double vision, lightheadedness , and left upper extremity weakness. Stroke alert was called. The patient had a stat CT scan, which showed no intracranial bleed. Of not e, the patient's symptoms rapidly improved over a few hours; however, the main sequela of this event was difficulty swallowing. The patient's swallowing recovered over the next 36 hours, and the patien t has been eating, taking p.o. intake with food and pills with no issues. She has been having no pro blems urination and bowel movements. She has no focal deficits noted at this time and been ambulatin g the halls without problems. Her post-procedure echocardiogram showed normal EF with normally funct ioning valve. She will be discharged home today with her home medications, including baby aspirin and Plavix, as we ll as an increased dose of her Toprol-XL to 100 mg p.o. daily. As of this time, the patient is compl etely back to her baseline with only a very slight amount of blurred vision; however, this has been r apidly improving as well over the last 24 hours. There are no other cognitive neurologic deficits. /[id number]/MODL
[2018-03-28] MEDS: PRESERVISION AREDS2 FORMULA EYE VIT 1 EACH PO SCH (08:20)
[2018-03-28] MEDS: ASPIRIN 81 MG CHEWABLE TAB PO SCH (08:20)
[2018-03-28] MEDS: CLOPIDOGREL BISULFATE 75 MG TAB PO SCH (08:20)
[2018-03-28] MEDS: FLUTICASONE HFA 110 MCG MDI IH SCH (08:42)
[2018-03-28] MEDS ORDERED: MONTELUKAST SODIUM 10 MG TAB PO SCH (09:00)
[2018-03-28] MEDS ORDERED: METOPROLOL SUCCINATE XR 100 MG TAB PO SCH (09:00)
[2018-03-28] MEDS ORDERED: FERROUS SULFATE 325 MG TAB PO SCH (09:00)
[2018-03-28] MEDS ORDERED: Herbals/Supplements -Info Only PO SCH (09:00)
[2018-03-28] MEDS ORDERED: PANTOPRAZOLE SODIUM 40 MG TAB PO SCH (09:00)
[2018-03-28] MEDS ORDERED: HYDROCHLOROTHIAZIDE 25 MG TAB PO SCH (09:00)
[2018-03-28] MEDS ORDERED: FOLIC ACID 1 MG TAB PO SCH (09:00)
[2018-03-28] MEDS ORDERED: METHOTREXATE 2.5 MG TAB PO SCH (10:28)
[2018-03-28] MEDS ORDERED: ATORVASTATIN CALCIUM 20 MG TAB PO SCH (11:00)
--- NOTE | 2018-03-28 11:41 | PDIAF ---
- Diagnosis Code Status: Full Code - Medication Management Discharge Medications: electronically signed and located in the Home Medication List. - Orders Services needed: Home Care, Physical Therapy, Occupational Therapy, Speech Language Pathologist Home Care Face to Face: I certify that this patient was under my care and that I had the required [id number] encounter meeting the encounter requirements on the discharge day. My findings support the fact that the patient is homebound as defined in Home Care Face to Face Continued: CMS Chapter 7 Medicare Benefits Manual 30.1.1 , The condition of the patient is such that there exists a normal inability to leave home and consequently, leaving home would require a considerable and taxing effort. Diet Recommendation: cardiac -low fat low salt Diet Texture: Dysphagia 2 - Mechanically Altered - Chopped, Ground, Thin Liquids , Meds Whole w/Liquids Additional Instructions: Per TAVR discharge Instruction sheet. Will need to have lab drawn in 8 weeks to check Lipids and LFT's If questions, call Sweta or Dr El Garcia's RN's at [facility]. - Follow Up Care Current Providers and Referrals: Yoanna Mcpherson MD [Primary Care Provider] - Rojas Gallegos MD [Medical Doctor] - follow up in 1 week (She has appointments made. )
--- NOTE | 2018-03-28 11:54 | ASMTDCNOTE ---
Case Management Discharge Discharge Order Complete? Answers: Yes Patient to Obtain Answers: Independently Medications Transportation Arranged Answers: Family/Friends Faxed Final Orders Answers: Yes Notes: HC Agency/Facility Transfer Answers: Yes Notes: HC Report Printed & Faxed to Receiving Agency Family Notified Answers: Yes Notes: Jammie sanabria Discharge Comments Notes: Patient is discharging home today with [facility] for speech, physical therapy, and occupational therapy. Discharge summaries were Allscripted to [facility]. Daughter Jammie will drive patient back home. No further needs. Date Signed: 03/28/2018 11:53 AM Electronically Signed By:Quin Romo LCSW
--- NOTE | 2018-03-28 12:01 | ASDISCHSUM ---
Discharge Information Plan Status:Home with Home Health Medically Cleared to Leave:03/27/2018 Discharge Date:03/28/2018 11:58 AM D/C Disposition:Home Health Service [facility] D/C Disposition:Home, Routine, Self-Care Projected Discharge Date:03/28/2018 11:00 AM Transportation at D/C:Family Discharge Delay Reason: Follow-Up Date:03/28/2018 11:00 AM Discharge Slot:1 - 8:01 am - 12:00 noon Final Diagnosis:Aortic stenosis Placement Information Referral Type:*Home Health Care Services Referral ID:[id number] Provider Name:[facility] Care Address 1:[address] [address] Address 2: City:[place] Selection Factors: State:[place] Patient Contact Information Contact Name:JAMMIEROXIE Relationship:Daughter Address: Work Phone: City: [facility] Phone: State/Zip Code: Email: Financial Information Financial Class:Medicare Primary Plan Desc:MEDICARE INPATIENT Primary Plan Number:[id number] Secondary Plan Desc: Secondary Plan Number: Assessment Information LACE LACE Length of stay for Answers: 3 days current admission Acuity / Level of Answers: Yes Care: Did the patient have an inpatient admission? Comorbidities - select Answers: Congestive heart failure all that apply Other Notes: Hypothyroid # of Emergency department Answers: 0 visits in the last 6 months Score: 9 Date Signed: 03/28/2018 11:59 AM Electronically Signed By:Quin Romo LCSW [facility] CM Progress Note CM Note CM Note Notes: 82yo female admitted for Aortic stenosis. She has a Hx of Cellulitis of L LE, HTN, Hypothyroid, OA, Cervical neoplasm. Patient to have a TAVR procedure. Her daughter is her MPOA. Therapies to eval. May not have discharge needs. Date Signed: 03/26/2018 09:50 AM Electronically Signed By:Sandra Riley LCSW [facility] CM Progress Note CM Note CM Note Notes: Speech, PT and OT are all recommending home health for the patient. Spoke with Juanjo and she agrees with the recommendations. A referral was sent to [facility] and they can accept the patient. Transfer of care summary will need to include home health orders. Patient most likely to discharge tomorrow if she continues to do well post op. CM will follow. Date Signed: 03/27/2018 02:33 PM Electronically Signed By:Quin Romo LCSW Case Management Discharge Plan Note Case Management Discharge Discharge Order Complete? Answers: Yes Patient to Obtain Answers: Independently Medications Transportation Arranged Answers: Family/Friends Faxed Final Orders Answers: Yes Notes: [facility] Agency/Facility Transfer Answers: Yes Notes: [facility] Report Printed & Faxed to Receiving Agency Family Notified Answers: Yes Notes: Jammie sanabria Discharge Comments Notes: Patient is discharging home today with [facility] for speech, physical therapy, and occupational therapy. Discharge summaries were Allscripted to [facility]. Daughter Jammie will drive patient back home. No further needs. Date Signed: 03/28/2018 11:53 AM Electronically Signed By:Quin Romo NAPHTHALENE OPERATOR HELPER Intervention Information
== END 2018-03-28 11:58 | disposition home health service (06) | DRG 267 ==
LOC: FCATH 06:19 → F2W 08:51 → F2N 12:44
PROVIDERS: ADMIT Internal Medicine Cardiovascular Disease; ATTEND Internal Medicine Cardiovascular Disease
PROC: 02RF38Z Replacement of Aortic Valve with Zooplastic Tissue, Percutaneous Approach (ICD-10-PCS; principal; 2018-03-25)
DX: I35.0 Nonrheumatic aortic (valve) stenosis (principal); Z00.6 Encounter for examination for normal comparison and control in clinical research program; I97.820 Postprocedural cerebrovascular infarction following cardiac surgery; I10 Essential (primary) hypertension; R29.704 NIHSS score 4; I44.7 Left bundle-branch block, unspecified
CPT/HCPCS: 92526-GN; 92610-GN; 97110-GP; 97116-GP; 97161-GP; 97166-GO; 97530-GO; 97530-GP; C1760; C1769; C1894; G8978-GP-CJ; G8979-GP-CI; G8980-GP-CJ; G8987-GO-CJ; G8988-GO-CI; G8989-GO-CI; G8996-GN-CI; G8996-GN-CM; G8997-GN-CI; G8997-GN-CJ; G8998-GN-CI; J0690; J1644; J1885; J2250; J2270; J2370; J2704; J2720; J3010; Q9967

== ENCOUNTER → 2018-04-23 | Outpatient (CLI) | payer OTHER | LOC: BHFA 10:45 | PROVIDERS: ATTEND Internal Medicine Cardiovascular Disease | DX: Z95.2 Presence of prosthetic heart valve (principal) ==

== ENCOUNTER → 2018-05-26 | Outpatient (CLI) | payer OTHER | LOC: FIMAGING 13:30 | PROVIDERS: ATTEND Psychiatry & Neurology Neurology | DX: R90.82 White matter disease, unspecified (principal); R29.810 Facial weakness ==

== ENCOUNTER → 2018-05-28 | Outpatient (CLI) | payer OTHER | LOC: FIMAGING 12:07 | PROVIDERS: ATTEND Psychiatry & Neurology Neurology | DX: I65.23 Occlusion and stenosis of bilateral carotid arteries (principal) ==